=== PATIENT | male | born 1965 | race Caucasian/White ===

== ENCOUNTER 2020-11-15 01:08 | Emergency (ER) | payer BC, SELFPAY ==
[~2020-11-15] VITALS: Ht 182.9 cm; Wt 111.4 kg
[2020-11-15 01:43] LABS: BASO # 0.1 10^3/uL (0.0-0.2); EOS # 0.4 10^3/uL (0.0-0.5); EOS % 4.2 % (0.0-3.0); HEMATOCRIT 46.9 % (42.0-52.0); LYMPH # 2.6 10^3/uL (1.5-5.0); LYMPH % 24.7 % (24.0-44.0); MEAN CORPUSCULAR HEMOGLOBIN 31.6 pg (27.0-33.0); MEAN CORPUSCULAR HGB CONC 34.1 g/dl (32.0-36.5); MEAN CORPUSCULAR VOLUME 92.7 fl (80.0-96.0); MONO # 1.1 10^3/uL (0.0-0.8); MONO % 10.6 % (2.0-8.0); NEUTROPHILS # 6.2 10^3/uL (1.5-8.5); NEUTROPHILS % 59.2 % (36.0-66.0); PLATELET COUNT, AUTOMATED 237 10^3/uL (150-450); RED BLOOD COUNT 5.06 10^6/uL (4.30-6.10); WHITE BLOOD COUNT 10.5 10^3/uL (4.0-10.0)
[2020-11-15 01:53] LABS: INR 0.9; PROTHROMBIN TIME 12.6 SECONDS (12.7-14.5)
[2020-11-15 01:54] LABS: PARTIAL THROMBOPLASTIN TIME 26.5 SECONDS (25.9-37.0)
--- NOTE | 2020-11-15 02:24 | REPVR ---
PROCEDURE INFORMATION: Exam: XR Chest Exam date and time: 11/15/2020 1:53 AM Age: 55 years old Clinical indication: Shortness of breath; Additional info: Chest pain TECHNIQUE: Imaging protocol: XR of the chest. Views: 1 view. COMPARISON: No relevant prior studies available. FINDINGS: Lungs: Degree of lung inflation is normal. No evidence of pulmonary edema. No focal consolidation or parenchymal lung mass. Pleural spaces: No pleural effusion or pneumothorax. Heart/Mediastinum: Cardiac silhouette appears normal. No adenopathy or hilar mass. Bones/joints: Osseous structures show no concerning abnormality. IMPRESSION: No acute or focal cardiopulmonary process. Electronically signed by: Jose Guadalupe Mayberry On 11/15/2020 02:23:23 AM
[2020-11-15 02:30] LABS: ALBUMIN 3.9 GM/DL (3.2-5.2); ALT/SGPT 31 U/L (12-78); BILIRUBIN,DIRECT 0.1 MG/DL (0.0-0.2); BILIRUBIN,TOTAL 0.4 MG/DL (0.2-1.0); BLOOD UREA NITROGEN 16 MG/DL (7-18); CARBON DIOXIDE LEVEL 27 MEQ/L (21-32); CHLORIDE LEVEL 103 MEQ/L (98-107); CK-MB VALUE MASS 3.2 NG/ML (<3.6); CPK CREATINE PHOSPHOKINASE 198 U/L (39-308); CREATININE FOR GFR 1.11 MG/DL (0.70-1.30); GLOMERULAR FILTRATION RATE > 60.0 (>56); GLUCOSE, FASTING 220 MG/DL (70-100); LIPASE 156 U/L (73-393); MB/CK RELATIVE INDEX 1.62 (< OR =4); POTASSIUM SERUM 3.9 MEQ/L (3.5-5.1); SODIUM LEVEL 139 MEQ/L (136-145); TOTAL PROTEIN 7.7 GM/DL (6.4-8.2); TROPONIN I < 0.02 NG/ML (< 0.10)
[2020-11-15] MEDS ORDERED: NS 1,000 ML IV ONE (03:55)
[2020-11-15] MEDS ORDERED: ISOVUE-370 76% 100ML VIAL As Ordered ONE (04:02)
[2020-11-15 04:52] LABS: ETHYL ALCOHOL (ETHANOL) 0.109 % (0.000-0.010)
--- NOTE | 2020-11-15 05:31 | REPVR ---
PROCEDURE INFORMATION: Exam: CTA Chest With Contrast Exam date and time: 11/15/2020 4:10 AM Age: 55 years old Clinical indication: Chest wall pain; Additional info: Chest pain, recent prolonged drive TECHNIQUE: Imaging protocol: Computed tomographic angiography of the chest with contrast. 3D rendering (Not supervised by radiologist): MIP and/or 3D reconstructed images were created by the technologist. Radiation optimization: All CT scans at this facility use at least one of these dose optimization techniques: automated exposure control; mA and/or kV adjustment per patient size (includes targeted exams where dose is matched to clinical indication); or iterative reconstruction. Contrast material: ISOVUE 370; Contrast volume: 100 ml; Contrast route: INTRAVENOUS (IV); COMPARISON: CR PORTABLE CHEST X-RAY 11/15/2020 1:46 AM FINDINGS: Pulmonary arteries: Normal. No pulmonary emboli. Aorta: Mild atherosclerotic disease of the thoracic aorta. 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 Lungs: Mild bilateral dependent atelectasis. Linear atelectasis or scarring in the right middle lobe and lingula. Pleural spaces: Unremarkable. No pneumothorax. No pleural effusion. Heart: Atherosclerotic disease of the coronary arteries. Mild cardiomegaly. Lymph nodes: Unremarkable. No enlarged lymph nodes. Liver: Mild hepatomegaly. Bones/joints: Unremarkable. No acute fracture. Soft tissues: Unremarkable. IMPRESSION: No acute pulmonary embolic disease. 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 Median arcuate ligament syndrome is a consideration. Electronically signed by: Jovi Mari On 11/15/2020 05:31:17 AM
[2020-11-15 06:26] LABS: CK-MB VALUE MASS 2.6 NG/ML (<3.6); CPK CREATINE PHOSPHOKINASE 150 U/L (39-308); MB/CK RELATIVE INDEX 1.73 (< OR =4); TROPONIN I < 0.02 NG/ML (< 0.10)
[2020-11-15 06:30] VITALS: BP 150/71
--- NOTE | 2020-11-15 08:58 | ECGEPIP ---
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
--- NOTE | 2020-11-16 08:09 | ECGEPIP ---
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
== END 2020-11-15 06:57 | disposition home or self-care (01) ==
LOC: M ED 01:08
DX: R07.89 Other chest pain (principal); E11.9 Type 2 diabetes mellitus without complications; I10 Essential (primary) hypertension; E78.5 Hyperlipidemia, unspecified
CPT/HCPCS: 71045; 71275; 80048; 80076; 82077; 82550; 82553; 83690; 83735; 84443; 84484; 85025; 85610; 85730; 93005; 93041; 94760; 96360; 99285; Q9967

== ENCOUNTER → 2021-06-30 | Outpatient (CLI) | payer BC ==
[2021-06-30 13:29] LABS: BASO # 0.1 10^3/uL (0.0-0.2); BASO % 0.8 % (0.0-1.0); EOS # 0.5 10^3/uL (0.0-0.5); EOS % 4.9 % (0.0-3.0); HEMATOCRIT 49.3 % (42.0-52.0); HEMOGLOBIN 16.8 g/dl (13.5-17.5); LYMPH # 2.9 10^3/uL (1.5-5.0); LYMPH % 29.3 % (24.0-44.0); MEAN CORPUSCULAR HEMOGLOBIN 32.3 pg (27.0-33.0); MEAN CORPUSCULAR HGB CONC 34.1 g/dl (32.0-36.5); MEAN CORPUSCULAR VOLUME 94.8 fl (80.0-96.0); MONO # 1.2 10^3/uL (0.0-0.8); MONO % 11.7 % (2.0-8.0); NEUTROPHILS # 5.3 10^3/uL (1.5-8.5); NEUTROPHILS % 52.9 % (36.0-66.0); PLATELET COUNT, AUTOMATED 244 10^3/uL (150-450); WHITE BLOOD COUNT 9.9 10^3/uL (4.0-10.0)
[2021-06-30 14:05] LABS: ALBUMIN 4.5 GM/DL (3.2-5.2); ALT/SGPT 40 U/L (12-78); BILIRUBIN,TOTAL 0.9 MG/DL (0.2-1.0); BLOOD UREA NITROGEN 20 MG/DL (7-18); CALCIUM LEVEL 9.8 MG/DL (8.5-10.1); CARBON DIOXIDE LEVEL 36 MEQ/L (21-32); CHLORIDE LEVEL 99 MEQ/L (98-107); CHOLESTEROL LEVEL 227 MG/DL (<200); CHOLESTEROL RISK RATIO 3.603 (<5); CREATININE FOR GFR 1.09 MG/DL (0.70-1.30); FREE T4 1.04 NG/DL (0.76-1.46); GLOMERULAR FILTRATION RATE > 60.0 (>56); GLUCOSE, FASTING 75 MG/DL (70-100); HDL CHOLESTEROL 63 MG/DL (>40); LDL CHOLESTEROL 133 MG/DL (<100); NON-HDL-C 164 MG/DL; POTASSIUM SERUM 3.8 MEQ/L (3.5-5.1); SODIUM LEVEL 136 MEQ/L (136-145); TOTAL PROTEIN 8.9 GM/DL (6.4-8.2); TRIGLYCERIDES LEVEL 156 MG/DL (<150)
[2021-06-30 14:06] LABS: CREATININE, URINE 37.6 MG/DL; MALB URINE SIEMENS 20.6 MG/L; MAU/CREAT RATIO 54.7 MCG/MG (0.0-30.0)
[2021-06-30 14:07] LABS: TESTOSTERONE 143 NG/DL (241-827)
== END ==
LOC: M PLALAB 09:57
PROVIDERS: ATTEND Physician Assistant
DX: I10 Essential (primary) hypertension (principal); E78.2 Mixed hyperlipidemia; E03.9 Hypothyroidism, unspecified; E11.9 Type 2 diabetes mellitus without complications; E34.9 Endocrine disorder, unspecified

== ENCOUNTER → 2021-08-27 | Outpatient (REF) | payer BC ==
[~2021-08-27] MED LIST: AMLO1TAB25 PO; ATOR40TA75 PO; FARX1TAB3 PO; HYDR-3490 PO; LEVO150T7 PO; LOSA100T45 PO; METF-838 PO
[2021-08-27 18:05] LABS: BLOOD UREA NITROGEN 16 MG/DL (7-18); CALCIUM LEVEL 9.2 MG/DL (8.5-10.1); CARBON DIOXIDE LEVEL 31 MEQ/L (21-32); CHLORIDE LEVEL 104 MEQ/L (98-107); CREATININE FOR GFR 1.31 MG/DL (0.70-1.30); GLOMERULAR FILTRATION RATE > 60.0 (>56); GLUCOSE, FASTING 148 MG/DL (70-100); POTASSIUM SERUM 4.9 MEQ/L (3.5-5.1); SODIUM LEVEL 140 MEQ/L (136-145)
[2021-08-30 11:14] LABS: TESTOSTERONE 508 NG/DL (241-827)
== END ==
LOC: M LABDRAWC 12:06
PROVIDERS: ATTEND Internal Medicine Endocrinology, Diabetes & Metabolism
DX: E11.65 Type 2 diabetes mellitus with hyperglycemia (principal); E29.1 Testicular hypofunction

== ENCOUNTER → 2022-03-07 | Outpatient (REF) | payer BC | LOC: M SFHCADAM 11:09 | PROVIDERS: ATTEND Physician Assistant | DX: Z53.20 Procedure and treatment not carried out because of patient's decision for unspecified reasons (principal) ==

== ENCOUNTER → 2022-03-16 | Outpatient (CLI) | payer BC ==
[2022-03-16 15:46] LABS: BASO # 0.1 10^3/uL (0.0-0.2); BASO % 0.9 % (0.0-1.0); EOS # 0.3 10^3/uL (0.0-0.5); EOS % 3.2 % (0.0-3.0); HEMATOCRIT 50.9 % (42.0-52.0); HEMOGLOBIN 16.5 g/dl (13.5-17.5); LYMPH # 2.1 10^3/uL (1.5-5.0); LYMPH % 23.6 % (24.0-44.0); MEAN CORPUSCULAR HGB CONC 32.4 g/dl (32.0-36.5); MEAN CORPUSCULAR VOLUME 95.5 fl (80.0-96.0); MONO % 10.7 % (2.0-8.0); NEUTROPHILS # 5.5 10^3/uL (1.5-8.5); NEUTROPHILS % 61.2 % (36.0-66.0); PLATELET COUNT, AUTOMATED 221 10^3/uL (150-450); RED BLOOD COUNT 5.33 10^6/uL (4.30-6.10)
[2022-03-16 16:01] LABS: BLOOD UREA NITROGEN 17 MG/DL (9-23); CALCIUM LEVEL 9.9 MG/DL (8.5-10.1); CARBON DIOXIDE LEVEL 31 MMOL/L (20-31); CHLORIDE LEVEL 100 MMOL/L (98-107); CHOLESTEROL LEVEL 120 MG/DL (<200); CHOLESTEROL RISK RATIO 2.58 (<5); CREATININE FOR GFR 0.95 MG/DL (0.70-1.30); GLOMERULAR FILTRATION RATE > 60.0 (>56); GLUCOSE, FASTING 236 MG/DL (60-100); HDL CHOLESTEROL 46.4 MG/DL (>40); NON-HDL-C 74 MG/DL; POTASSIUM SERUM 5.4 MMOL/L (3.5-5.1); SODIUM LEVEL 139 MMOL/L (136-145); TRIGLYCERIDES LEVEL 113 MG/DL (<150)
[2022-03-16 16:02] LABS: CREATININE, URINE 41.2 MG/DL
[2022-03-16 16:03] LABS: MAU/CREAT RATIO 48.5 MCG/MG (0.0-30.0)
[2022-03-16 16:06] LABS: THYROID STIMULATING HORMONE 1.365 uIU/ML (0.55-4.78)
[2022-03-16 16:07] LABS: FREE T4 1.57 NG/DL (0.89-1.76)
== END ==
LOC: M PLALAB 12:42
PROVIDERS: ATTEND Physician Assistant
DX: E11.9 Type 2 diabetes mellitus without complications (principal); I10 Essential (primary) hypertension

== ENCOUNTER → 2022-06-07 | Outpatient (CLI) | payer BC ==
[2022-06-07 14:23] LABS: BLOOD UREA NITROGEN 12 MG/DL (9-23); CALCIUM LEVEL 9.2 MG/DL (8.5-10.1); CARBON DIOXIDE LEVEL 31 MMOL/L (20-31); CHLORIDE LEVEL 102 MMOL/L (98-107); CREATININE FOR GFR 0.97 MG/DL (0.70-1.30); FREE T4 1.47 NG/DL (0.89-1.76); GLOMERULAR FILTRATION RATE > 60.0 (>56); GLUCOSE, FASTING 148 MG/DL (60-100); POTASSIUM SERUM 4.8 MMOL/L (3.5-5.1); SODIUM LEVEL 139 MMOL/L (136-145); THYROID STIMULATING HORMONE 3.448 uIU/ML (0.55-4.78)
== END ==
LOC: M PLALAB 11:40
PROVIDERS: ATTEND Physician Assistant
DX: E87.5 Hyperkalemia (principal); E11.9 Type 2 diabetes mellitus without complications

== ENCOUNTER → 2022-06-10 | Outpatient (REF) | payer BC ==
[2022-06-10 13:51] LABS: BLOOD UREA NITROGEN 13 MG/DL (9-23); CALCIUM LEVEL 9.5 MG/DL (8.5-10.1); CARBON DIOXIDE LEVEL 32 MMOL/L (20-31); CHLORIDE LEVEL 98 MMOL/L (98-107); CREATININE FOR GFR 0.84 MG/DL (0.70-1.30); GLOMERULAR FILTRATION RATE > 60.0 (>56); GLUCOSE, FASTING 300 MG/DL (60-100); POTASSIUM SERUM 4.4 MMOL/L (3.5-5.1); SODIUM LEVEL 136 MMOL/L (136-145)
[2022-06-10 15:59] LABS: HEMOGLOBIN A1c 8.5 % (4.0-6.0)
== END ==
LOC: M SFHCADAM 10:52
PROVIDERS: ATTEND Physician Assistant
DX: E11.9 Type 2 diabetes mellitus without complications (principal)

== ENCOUNTER → 2022-09-06 | Outpatient (REF) | payer BC ==
[~2022-09-06] MED LIST changes: -LOSA100T45 PO; +LOSA100T46 PO
[2022-09-06 14:34] LABS: HEMOGLOBIN A1c 7.1 % (4.0-6.0)
[2022-09-06 14:53] LABS: CREATININE, URINE 53.1 MG/DL; MAU/CREAT RATIO 33.8 MCG/MG (0.0-30.0)
[2022-09-06 14:55] LABS: BLOOD UREA NITROGEN 14 MG/DL (9-23); CALCIUM LEVEL 9.5 MG/DL (8.5-10.1); CARBON DIOXIDE LEVEL 30 MMOL/L (20-31); CHLORIDE LEVEL 100 MMOL/L (98-107); CHOLESTEROL LEVEL 105 MG/DL (<200); CHOLESTEROL RISK RATIO 2.08 (<5); CREATININE FOR GFR 1.05 MG/DL (0.70-1.30); GLOMERULAR FILTRATION RATE > 60.0 (>56); GLUCOSE, FASTING 121 MG/DL (60-100); HDL CHOLESTEROL 50.3 MG/DL (>40); LDL CHOLESTEROL 41.3 MG/DL (<100); NON-HDL-C 54.7 MG/DL; POTASSIUM SERUM 4.9 MMOL/L (3.5-5.1); SODIUM LEVEL 136 MMOL/L (136-145); TRIGLYCERIDES LEVEL 67 MG/DL (<150)
[2022-09-06 14:56] LABS: THYROID STIMULATING HORMONE 1.257 uIU/ML (0.55-4.78)
[2022-09-06 14:57] LABS: FREE T4 1.66 NG/DL (0.89-1.76); TESTOSTERONE 1472 NG/DL (241-827)
[2022-09-06 15:06] LABS: BASO # 0.1 10^3/uL (0.0-0.2); BASO % 0.9 % (0.0-1.0); EOS # 0.4 10^3/uL (0.0-0.5); EOS % 3.6 % (0.0-3.0); LYMPH # 2.8 10^3/uL (1.5-5.0); LYMPH % 28.2 % (24.0-44.0); MEAN CORPUSCULAR HEMOGLOBIN 31.5 pg (27.0-33.0); MEAN CORPUSCULAR VOLUME 95.5 fl (80.0-96.0); MONO # 1.2 10^3/uL (0.0-0.8); MONO % 11.7 % (2.0-8.0); NEUTROPHILS # 5.5 10^3/uL (1.5-8.5); NEUTROPHILS % 55.3 % (36.0-66.0); PLATELET COUNT, AUTOMATED 216 10^3/uL (150-450)
[2022-09-06 15:07] LABS: RED BLOOD COUNT 5.56 10^6/uL (4.30-6.10)
[2022-09-06 15:08] LABS: HEMATOCRIT 53.1 % (42.0-52.0); HEMOGLOBIN 17.5 g/dl (13.5-17.5)
== END ==
LOC: M SFHCADAM 08:52
PROVIDERS: ATTEND Physician Assistant
DX: E11.9 Type 2 diabetes mellitus without complications (principal); I10 Essential (primary) hypertension; E78.2 Mixed hyperlipidemia; E03.9 Hypothyroidism, unspecified; E34.9 Endocrine disorder, unspecified

== ENCOUNTER → 2022-12-06 | Outpatient (REF) | payer BC | LOC: M SFHCADAM 08:13 | PROVIDERS: ATTEND Physician Assistant | DX: E34.9 Endocrine disorder, unspecified (principal) ==

== ENCOUNTER → 2023-01-27 | Outpatient (REF) | payer BC ==
[2023-01-27 13:21] LABS: BASO # 0.1 10^3/uL (0.0-0.2); EOS # 0.4 10^3/uL (0.0-0.5); EOS % 4.5 % (0.0-3.0); HEMATOCRIT 45.9 % (42.0-52.0); HEMOGLOBIN 15.1 g/dl (13.5-17.5); LYMPH # 2.1 10^3/uL (1.5-5.0); LYMPH % 25.6 % (24.0-44.0); MEAN CORPUSCULAR HEMOGLOBIN 31.8 pg (27.0-33.0); MEAN CORPUSCULAR HGB CONC 32.9 g/dl (32.0-36.5); MEAN CORPUSCULAR VOLUME 96.6 fl (80.0-96.0); MONO # 1.1 10^3/uL (0.0-0.8); MONO % 13.3 % (2.0-8.0); NEUTROPHILS # 4.5 10^3/uL (1.5-8.5); NEUTROPHILS % 55.2 % (36.0-66.0); PLATELET COUNT, AUTOMATED 218 10^3/uL (150-450); RED BLOOD COUNT 4.75 10^6/uL (4.30-6.10); WHITE BLOOD COUNT 8.2 10^3/uL (4.0-10.0)
[2023-01-27 13:39] LABS: HEMOGLOBIN A1c 6.5 % (4.0-6.0)
[2023-01-27 13:47] LABS: THYROID STIMULATING HORMONE 1.283 uIU/ML (0.55-4.78)
[2023-01-27 13:48] LABS: ALBUMIN 4.1 G/DL (3.2-5.2); ALKALINE PHOSPHATASE 70 U/L (46-116); ALT/SGPT 21 U/L (7.0-40); AST/SGOT 19 U/L (<34); BILIRUBIN,TOTAL 0.5 MG/DL (0.3-1.2); BLOOD UREA NITROGEN 13 MG/DL (9-23); CALCIUM LEVEL 9.5 MG/DL (8.5-10.1); CARBON DIOXIDE LEVEL 30 MMOL/L (20-31); CHLORIDE LEVEL 102 MMOL/L (98-107); CHOLESTEROL LEVEL 124 MG/DL (<200); CHOLESTEROL RISK RATIO 2.56 (<5); CREATININE FOR GFR 0.86 MG/DL (0.70-1.30); GLOMERULAR FILTRATION RATE > 60.0 (>56); GLUCOSE, FASTING 122 MG/DL (60-100); HDL CHOLESTEROL 48.3 MG/DL (>40); LDL CHOLESTEROL 59.1 MG/DL (<100); NON-HDL-C 75.7 MG/DL; POTASSIUM SERUM 4.5 MMOL/L (3.5-5.1); SODIUM LEVEL 140 MMOL/L (136-145); TESTOSTERONE 292 NG/DL (241-827); TOTAL PROTEIN 7.4 G/DL (5.7-8.2); TRIGLYCERIDES LEVEL 83 MG/DL (<150)
[2023-01-27 13:49] LABS: FREE T4 1.52 NG/DL (0.89-1.76); VITAMIN B12 LEVEL 249 PG/ML (211-911)
== END ==
LOC: M SFHCADAM 08:49
PROVIDERS: ATTEND Physician Assistant
DX: E03.9 Hypothyroidism, unspecified (principal); I10 Essential (primary) hypertension; E78.2 Mixed hyperlipidemia; E11.9 Type 2 diabetes mellitus without complications; Z12.5 Encounter for screening for malignant neoplasm of prostate; E34.9 Endocrine disorder, unspecified
CPT/HCPCS: 80053; 80061; 82607; 83036; 84403; 84439; 84443; 85025; G0103

== ENCOUNTER → 2023-05-05 | Outpatient (REF) | payer BC ==
[2023-05-05 13:08] LABS: BLOOD UREA NITROGEN 11 MG/DL (9-23); CALCIUM LEVEL 9.5 MG/DL (8.5-10.1); CARBON DIOXIDE LEVEL 30 MMOL/L (20-31); CHLORIDE LEVEL 101 MMOL/L (98-107); CREATININE FOR GFR 0.85 MG/DL (0.70-1.30); GLOMERULAR FILTRATION RATE > 60.0 (>56); GLUCOSE, FASTING 141 MG/DL (60-100); POTASSIUM SERUM 4.3 MMOL/L (3.5-5.1); SODIUM LEVEL 135 MMOL/L (136-145)
[2023-05-05 13:09] LABS: FREE T4 1.47 NG/DL (0.89-1.76); THYROID STIMULATING HORMONE 1.847 uIU/ML (0.55-4.78)
[2023-05-05 13:10] LABS: TESTOSTERONE 1490 NG/DL (241-827)
[2023-05-05 13:12] LABS: HEMOGLOBIN A1c 6.8 % (4.0-6.0)
== END ==
LOC: M SFHCADAM 08:42
PROVIDERS: ATTEND Physician Assistant
DX: E03.9 Hypothyroidism, unspecified (principal); E11.9 Type 2 diabetes mellitus without complications; E34.9 Endocrine disorder, unspecified

== ENCOUNTER → 2023-05-12 | Outpatient (CLI) | payer BC | LOC: M RAD 07:29 | PROVIDERS: ATTEND Physician Assistant | DX: R10.9 Unspecified abdominal pain (principal) ==

== ENCOUNTER → 2023-07-04 | Outpatient (CLI) | payer BC ==
[~2023-07-04] MED LIST changes: +PROHANCE 279.3MG/ML 15ML VIAL ONE; +PROHANCE 279.3MG/ML 5ML VIAL ONE
== END ==
LOC: M PLAIMG 08:17
PROVIDERS: ATTEND Physician Assistant
DX: R93.2 Abnormal findings on diagnostic imaging of liver and biliary tract (principal)
CPT/HCPCS: 74183; A9576

== ENCOUNTER → 2023-08-09 | Outpatient (REF) | payer BC ==
[~2023-08-09] MED LIST changes: -PROHANCE 279.3MG/ML 15ML VIAL ONE; -PROHANCE 279.3MG/ML 5ML VIAL ONE
== END ==
LOC: M SFHCADAM 08:47
PROVIDERS: ATTEND Physician Assistant
DX: E34.9 Endocrine disorder, unspecified (principal)

== ENCOUNTER → 2023-08-30 | Outpatient (REF) | payer BC | LOC: M SFHCADAM 13:55 | PROVIDERS: ATTEND Physician Assistant | DX: D69.9 Hemorrhagic condition, unspecified (principal) ==

== ENCOUNTER → 2023-11-07 | Outpatient (REF) | payer BC | LOC: M SFHCADAM 08:52 | PROVIDERS: ATTEND Physician Assistant | DX: D69.9 Hemorrhagic condition, unspecified (principal); E34.9 Endocrine disorder, unspecified ==

== ENCOUNTER → 2023-11-21 | Outpatient (REF) | payer BC ==
[2023-11-21 13:35] LABS: BASO # 0.1 10^3/uL (0.0-0.2); BASO % 0.8 % (0.0-1.0); EOS # 0.4 10^3/uL (0.0-0.5); EOS % 3.2 % (0.0-3.0); LYMPH # 2.1 10^3/uL (1.5-5.0); LYMPH % 19.4 % (24.0-44.0); MEAN CORPUSCULAR HGB CONC 32.7 g/dl (32.0-36.5); MONO # 1.2 10^3/uL (0.0-0.8); MONO % 11.1 % (2.0-8.0); NEUTROPHILS # 7.1 10^3/uL (1.5-8.5); NEUTROPHILS % 65.2 % (36.0-66.0); PLATELET COUNT, AUTOMATED 234 10^3/uL (150-450)
[2023-11-21 13:38] LABS: PSA SCREENING 0.87 NG/ML (< 4.00)
[2023-11-21 13:41] LABS: FREE T4 1.54 NG/DL (0.89-1.76)
[2023-11-21 13:42] LABS: ALBUMIN 4.4 G/DL (3.2-5.2); ALKALINE PHOSPHATASE 79 U/L (46-116); ALT/SGPT 17 U/L (7.0-40); AST/SGOT 14 U/L (<34); BILIRUBIN,TOTAL 1.1 MG/DL (0.3-1.2); BLOOD UREA NITROGEN 12 MG/DL (9-23); CALCIUM LEVEL 9.7 MG/DL (8.5-10.1); CARBON DIOXIDE LEVEL 30 MMOL/L (20-31); CHLORIDE LEVEL 102 MMOL/L (98-107); CHOLESTEROL LEVEL 119 MG/DL (<200); CHOLESTEROL RISK RATIO 2.39 (<5); CREATININE FOR GFR 0.81 MG/DL (0.70-1.30); GLOMERULAR FILTRATION RATE > 60.0 (>56); GLUCOSE, FASTING 124 MG/DL (60-100); HDL CHOLESTEROL 49.6 MG/DL (>40); LDL CHOLESTEROL 53.6 MG/DL (<100); NON-HDL-C 69.4 MG/DL; POTASSIUM SERUM 4.6 MMOL/L (3.5-5.1); SODIUM LEVEL 139 MMOL/L (136-145); THYROID STIMULATING HORMONE 1.682 uIU/ML (0.55-4.78); TOTAL PROTEIN 8.1 G/DL (5.7-8.2); TRIGLYCERIDES LEVEL 79 MG/DL (<150)
[2023-11-21 14:04] LABS: TESTOSTERONE 1644 NG/DL (241-827)
== END ==
LOC: M SFHCADAM 09:22
PROVIDERS: ATTEND Physician Assistant
DX: E34.9 Endocrine disorder, unspecified (principal); E11.9 Type 2 diabetes mellitus without complications; Z12.5 Encounter for screening for malignant neoplasm of prostate

== ENCOUNTER → 2024-01-01 | Outpatient (REF) | payer BC ==
[2024-01-01 12:41] LABS: BASO # 0.1 10^3/uL (0.0-0.2); BASO % 1.1 % (0.0-1.0); EOS # 0.3 10^3/uL (0.0-0.5); EOS % 3.9 % (0.0-3.0); HEMOGLOBIN 15.5 g/dl (13.5-17.5); LYMPH # 2.2 10^3/uL (1.5-5.0); LYMPH % 28.7 % (24.0-44.0); MEAN CORPUSCULAR HEMOGLOBIN 31.1 pg (27.0-33.0); MEAN CORPUSCULAR HGB CONC 32.3 g/dl (32.0-36.5); MEAN CORPUSCULAR VOLUME 96.4 fl (80.0-96.0); MONO # 1.1 10^3/uL (0.0-0.8); NEUTROPHILS # 3.9 10^3/uL (1.5-8.5); PLATELET COUNT, AUTOMATED 217 10^3/uL (150-450); RED BLOOD COUNT 4.98 10^6/uL (4.30-6.10); WHITE BLOOD COUNT 7.5 10^3/uL (4.0-10.0)
[2024-01-01 12:55] LABS: INR 0.9; PROTHROMBIN TIME 11.9 SECONDS (12.5-14.5)
[2024-01-01 12:58] LABS: ALBUMIN 4.2 G/DL (3.2-5.2); ALKALINE PHOSPHATASE 74 U/L (46-116); ALT/SGPT 24 U/L (7.0-40); AST/SGOT 16 U/L (<34); BILIRUBIN,TOTAL 0.9 MG/DL (0.3-1.2); BLOOD UREA NITROGEN 18 MG/DL (9-23); CARBON DIOXIDE LEVEL 31 MMOL/L (20-31); CHLORIDE LEVEL 102 MMOL/L (98-107); CREATININE FOR GFR 0.87 MG/DL (0.70-1.30); GLOMERULAR FILTRATION RATE > 60.0 (>56); GLUCOSE, FASTING 146 MG/DL (60-100); POTASSIUM SERUM 5.3 MMOL/L (3.5-5.1); SODIUM LEVEL 139 MMOL/L (136-145)
[2024-01-01 13:01] LABS: TESTOSTERONE 985 NG/DL (241-827)
== END ==
LOC: M SFHCADAM 09:04
PROVIDERS: ATTEND Physician Assistant
DX: D69.9 Hemorrhagic condition, unspecified (principal); E34.9 Endocrine disorder, unspecified

== ENCOUNTER → 2024-01-30 | Outpatient (REF) | payer BC | LOC: M SFHCADAM 07:53 | PROVIDERS: ATTEND Physician Assistant | DX: Z53.9 Procedure and treatment not carried out, unspecified reason (principal) ==

== ENCOUNTER → 2024-02-28 | Outpatient (REF) | payer BC ==
[2024-02-28 13:51] LABS: HEMOGLOBIN A1c 7.1 % (4.0-6.0)
[2024-02-28 13:56] LABS: BLOOD UREA NITROGEN 12 MG/DL (9-23); CALCIUM LEVEL 9.7 MG/DL (8.5-10.1); CARBON DIOXIDE LEVEL 31 MMOL/L (20-31); CHLORIDE LEVEL 102 MMOL/L (98-107); CREATININE FOR GFR 0.79 MG/DL (0.70-1.30); GLOMERULAR FILTRATION RATE > 60.0 (>56); GLUCOSE, FASTING 122 MG/DL (60-100); POTASSIUM SERUM 4.4 MMOL/L (3.5-5.1); SODIUM LEVEL 139 MMOL/L (136-145)
[2024-03-03 19:27] LABS: TESTOSTERONE FREE (DIRECT) 72.2 pg/mL (35.0-155.0)
== END ==
LOC: M SFHCADAM 10:33
PROVIDERS: ATTEND Physician Assistant
DX: E11.9 Type 2 diabetes mellitus without complications (principal); E34.9 Endocrine disorder, unspecified; E87.5 Hyperkalemia

== ENCOUNTER → 2024-09-26 | Outpatient (CLI) | payer BC ==
[2024-09-26 09:52] LABS: BASO # 0.1 10^3/uL (0.0-0.2); BASO % 1.0 % (0.0-1.0); EOS # 0.4 10^3/uL (0.0-0.5); EOS % 4.5 % (0.0-3.0); LYMPH # 3.0 10^3/uL (1.5-5.0); LYMPH % 37.5 % (24.0-44.0); MONO # 0.9 10^3/uL (0.0-0.8); MONO % 11.7 % (2.0-8.0); NEUTROPHILS # 3.6 10^3/uL (1.5-8.5); NEUTROPHILS % 45.0 % (36.0-66.0); PLATELET COUNT, AUTOMATED 238 10^3/uL (150-450)
[2024-09-26 10:13] LABS: ALT/SGPT 36 U/L (7.0-40); AST/SGOT 28 U/L (<34); CALCIUM LEVEL 9.8 MG/DL (8.5-10.1); CARBON DIOXIDE LEVEL 29 MMOL/L (20-31); CHLORIDE LEVEL 103 MMOL/L (98-107); CREATININE FOR GFR 0.88 MG/DL (0.70-1.30); GLOMERULAR FILTRATION RATE > 90.0 (>56); POTASSIUM SERUM 4.9 MMOL/L (3.5-5.1); SODIUM LEVEL 142 MMOL/L (136-145)
[2024-09-26 10:15] LABS: FREE T4 1.58 NG/DL (0.89-1.76)
[2024-09-26 10:16] LABS: TESTOSTERONE 234 NG/DL (241-827)
[2024-09-26 10:52] LABS: ESTIMATED AVERAGE GLUCOSE 143.0 MG/DL (60-110)
== END ==
LOC: M PLALAB 08:12
PROVIDERS: ATTEND Physician Assistant
DX: E11.9 Type 2 diabetes mellitus without complications (principal); I11.9 Hypertensive heart disease without heart failure; E34.9 Endocrine disorder, unspecified